=== PATIENT | male | born 1995 | race Caucasian/White ===

== ENCOUNTER 2016-08-13 23:25 | Emergency (ER) | payer OTHER ==
[2016-08-13] MEDS ORDERED: Lactated Ringers 1,000 ML IV ONE ×2 (23:38→23:45)
[2016-08-13 23:53] LABS: BASOPHIL % 0.2 % (0.0-0.4); Eosinophil % 2.3 % (0.00-5.0); Granulocytes % 43.9 % (36.0-66.0); Lymphocytes % 42.6 % (24.0-44.0); Mean Corpuscular Hemoglobin 30.7 pg (26-32); Mean Platelet Volume 10.8 fl (6-9.5); Platelet Count 298 K/mm3 (150-450); Red Blood Count 5.02 M/mm3 (4.1-5.6); Red Cell Distribution Width 13.8 % (11.5-14.0)
[2016-08-13 23:55] LABS: ADD URINE CULTURE? NO (NO); COMPLETE URINE MICROSCOPIC? NO; Collection Type CLEAN CATCH
[2016-08-14 00:13] LABS: ALBUMIN 3.9 g/dL (3.4-5.0); ALKALINE PHOSPHATASE 47 U/L (46-116); ANION GAP 8.7 MEQ/L (5-15); BLOOD UREA NITROGEN 15 mg/dL (9-20); CHLORIDE 105 mEq/L (98-107); Carbon Dioxide 30.8 mEq/L (21-32); Glucose 77 MG/DL (70-110); Potassium 3.9 mEq/L (3.5-5.1); SGOT/AST 16 U/L (15-37); SGPT/ALT 17 U/L (12-78); SODIUM 141 mEq/L (136-145); Total Protein 7.7 gm/dL (6.4-8.2)
--- NOTE | 2016-08-14 00:18 | ERPHSYRPT ---
- History of Present Illness Time Seen by Provider: 08/13/16 23:33 Source: patient, family (girlfriend) Patient Subjective Stated Complaint: states that he has had some light- headedness and dizziness to accompany abd pain that began today Triage Nursing Assessment: ambulatory to treatment area - steady gait - moves all extremities with equal strength. alert/oriented - happy/cooperative. skin pwd - no rash/injury. resps easy - non-labored Physician History: CC: passed out Hx: 21 y/o healthy male patient who lives in [place] in [address] with girlfriend. 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 He felt nausea and passed out briefly. It was hot. Drank fluids and went back to work. He has prior hx of syncope/fainting remotely. He went home. He then had abd pain and passed out again. No injury. He has had some left flank pain for a while off and on. He vomited before this episode. Witnessed by girlfriend. No seizure activity. Denies alcohol or drug use. No fever or chills. [place] hot working in the weather today. Witnessed: by family Prior Episodes: multiple episodes today (X2) Timing/Duration: today Hx Tetanus, Diphtheria Vaccination/Date Given: Yes Hx Influenza Vaccination/Date Given: No Hx Pneumococcal Vaccination/Date Given: No Immunizations Up to Date: Yes - Past Medical History Pertinent Past Medical History: No - Past Surgical History Past Surgical History: No - Social History Smoking Status: Current every day smoker Exposure to second hand smoke: No Drug Use: none Patient Lives Alone: No - Review of Systems Constitutional: No Fever, No Chills, No Malaise, No Weakness Eyes: No Symptoms Ears, Nose, & Throat: No Symptoms Respiratory: No Cough, No Dyspnea Cardiac: Syncope, No Chest Pain, No Palpitations Abdominal/Gastrointestinal: Abdominal Pain (intermittent with left flank pain), Vomiting, No Diarrhea Genitourinary Symptoms: Flank Pain, No Dysuria, No Hematuria, No Testicle Pain Musculoskeletal: No Symptoms Skin: No Rash Neurological: No Focal Weakness, No Headache, No Parasthesia All Other Systems: Reviewed and Negative Physical Exam - Nursing Vital Signs Nursing Vital Signs: Initial Vital Signs Temperature 98.9 F Temperature Source Oral Pulse Rate 62 Respiratory Rate 20 Blood Pressure [] 130/70 Pain Intensity 5 - Aiken Coma Scale Best Eye Response (Diego): (4) open spontaneously Best Verbal Response (Diego): (5) oriented Best Motor Response (Diego): (6) obeys commands Aiken Total: 15 - Physical Exam General Appearance: alert, thin (tall, ambulatory) Eye Exam: bilateral eye: PERRL, EOMI Ears, Nose, Throat Exam: normal ENT inspection, moist mucous membranes Neck Exam: normal inspection, non-tender, supple Respiratory: normal breath sounds, lungs clear Cardiovascular: regular rate/rhythm, No murmur, No pulse deficit Gastrointestinal: soft, No tenderness, No distention, No mass, No guarding Male Genitalia: normal genitalia, No hernia, No testicular tenderness Back Exam: normal inspection, CVA tenderness (mild left) Extremity Exam: normal inspection, normal range of motion Mental Status: alert, oriented x 3, cooperative Motor/Sensory: no motor deficit, no sensory deficit Skin Exam: warm, dry, No rash SpO2 Interpretation: normal SpO2: 96 Oxygen Delivery: Room Air - Course Nursing assessment & vital signs reviewed: Yes EKG Interpreted by Me: RATE (55), Sinus Aidan, NORMAL AXIS, NORMAL INTERVALS ( QTc 383), NORMAL QRS, NORMAL ST-T - Radiology Exams cxr X-ray Interpretation: Interpreted by me, Negative, Nml Mediastinum - CT Exams abd/pelvis CT Interpretation: Negative, Tele-radiologist Report Ordered Tests: Active Orders 24 hr Category Date Time Status Clean Catch Urine Specimen STAT Care 08/13/16 23:37 Active EKG-ER Only STAT Care 08/13/16 23:37 Active IV Insertion STAT Care 08/13/16 23:37 Active Orthostatic Vital Signs STAT Care 08/14/16 01:01 Active ABDOMEN AND PELVIS W/0 CONTRAS [CT] Stat Exams 08/13/16 23:38 Taken CHEST 2 VIEWS (PA AND LAT) Stat Exams 08/13/16 23:38 Taken CBC W DIFF Stat Lab 08/13/16 23:45 Completed CMP Stat Lab 08/13/16 23:45 Completed UA W/RFX UR CULTURE Stat Lab 08/13/16 23:30 Completed Urine Triage Profile Stat Lab 08/13/16 23:30 Completed Medication Summary Discontinued Medications Generic Name Dose Route Start Last Admin Trade Name Freq PRN Reason Stop Dose Admin Lactated Ringer's 1,000 mls @ 999 mls/hr 08/13/16 23:38 08/13/16 23:45 Lactated Ringers IV 08/14/16 00:38 999 mls/hr .Q1H1M ONE Administration Lactated Ringer's Confirm 08/13/16 23:45 Lactated Ringers Administered 08/13/16 23:46 Dose 1,000 mls @ ud IV .STK-MED ONE Lab/Rad Data: Laboratory Result Diagrams 08/13/16 23:45 08/13/16 23:45 Laboratory Results 08/13/16 08/13/16 08/13/16 Range/Units 23:45 23:45 23:30 WBC 10.0 (4.0-10.5) K/mm3 RBC 5.02 (4.1-5.6) M/mm3 Hgb 15.4 (12.5-18.0) gm/dl Hct 45.7 (42-50) % MCV 91.0 (78-100) fl MCH 30.7 (26-32) pg MCHC 33.7 (32-36) g/dl RDW 13.8 (11.5-14.0) % Plt Count 298 (150-450) K/mm3 MPV 10.8 H (6-9.5) fl Gran % 43.9 (36.0-66.0) % Lymphocytes % 42.6 (24.0-44.0) % Monocytes % 11.0 (0.0-12.0) % Eosinophils % 2.3 (0.00-5.0) % Basophils % 0.2 (0.0-0.4) % Basophils # 0.02 (0-0.4) Sodium 141 (136-145) mEq/L Potassium 3.9 (3.5-5.1) mEq/L Chloride 105 (98-107) mEq/L Carbon Dioxide 30.8 (21-32) mEq/L Anion Gap 8.7 (5-15) MEQ/L BUN 15 (9-20) mg/dL Creatinine 0.92 (0.55-1.30) mg/dl Estimated GFR > 60 ML/MIN Glucose 77 (70-110) MG/DL Calcium 9.4 (8.5-10.1) mg/dL Total Bilirubin 0.30 (0.2-1.0) mg/dL AST 16 (15-37) U/L ALT 17 (12-78) U/L Alkaline Phosphatase 47 (46-116) U/L Serum Total Protein 7.7 (6.4-8.2) gm/dL Albumin 3.9 (3.4-5.0) g/dL Ur Collection Type Urine Color (YELLOW) Urine Appearance (CLEAR) Urine pH (5-6) Ur Specific [place] (1.005-1.025) Urine Protein (Negative) Urine Glucose (UA) (NEGATIVE) mg/dL Urine Ketones (NEGATIVE) Urine Nitrite (NEGATIVE) Urine Bilirubin (NEGATIVE) Urine Urobilinogen (0-1) mg/dL Urine WBC (Auto) (NEGATIVE) Urine RBC (Auto) (0-5) Deepak/ul Urine Opiates Level NEG. (NEGATIVE) Ur Methadone NEG. (NEGATIVE) Urine Barbiturates NEG. (NEGATIVE) Ur Phencyclidine (PCP) NEG. (NEGATIVE) Urine Amphetamine NEG. (NEGATIVE) U Benzodiazepine Level NEG. (NEGATIVE) Urine Cocaine NEG. (NEGATIVE) Urine Marijuana (THC) NEG. (NEGATIVE) Specimen Received 08/13/16 Range/Units 23:30 WBC (4.0-10.5) K/mm3 RBC (4.1-5.6) M/mm3 Hgb (12.5-18.0) gm/dl Hct (42-50) % MCV (78-100) fl MCH (26-32) pg MCHC (32-36) g/dl RDW (11.5-14.0) % Plt Count (150-450) K/mm3 MPV (6-9.5) fl Gran % (36.0-66.0) % Lymphocytes % (24.0-44.0) % Monocytes % (0.0-12.0) % Eosinophils % (0.00-5.0) % Basophils % (0.0-0.4) % Basophils # (0-0.4) Sodium (136-145) mEq/L Potassium (3.5-5.1) mEq/L Chloride (98-107) mEq/L Carbon Dioxide (21-32) mEq/L Anion Gap (5-15) MEQ/L BUN (9-20) mg/dL Creatinine (0.55-1.30) mg/dl Estimated GFR ML/MIN Glucose (70-110) MG/DL Calcium (8.5-10.1) mg/dL Total Bilirubin (0.2-1.0) mg/dL AST (15-37) U/L ALT (12-78) U/L Alkaline Phosphatase (46-116) U/L Serum Total Protein (6.4-8.2) gm/dL Albumin (3.4-5.0) g/dL Ur Collection Type CLEAN CATCH Urine Color YELLOW (YELLOW) Urine Appearance CLEAR (CLEAR) Urine pH 7.0 (5-6) Ur Specific [place] 1.025 (1.005-1.025) Urine Protein NEGATIVE (Negative) Urine Glucose (UA) NEGATIVE (NEGATIVE) mg/dL Urine Ketones NEGATIVE (NEGATIVE) Urine Nitrite NEGATIVE (NEGATIVE) Urine Bilirubin NEGATIVE (NEGATIVE) Urine Urobilinogen 1 (0-1) mg/dL Urine WBC (Auto) NEGATIVE (NEGATIVE) Urine RBC (Auto) NEGATIVE (0-5) Deepak/ul Urine Opiates Level (NEGATIVE) Ur Methadone (NEGATIVE) Urine Barbiturates (NEGATIVE) Ur Phencyclidine (PCP) (NEGATIVE) Urine Amphetamine (NEGATIVE) U Benzodiazepine Level (NEGATIVE) Urine Cocaine (NEGATIVE) Urine Marijuana (THC) (NEGATIVE) Specimen Received 08/13/16 2340 - Progress Progress Note: 08/14/16 00:18 18 ga PIV left AC X 1 stick. IVF LR bolus given. Will check CT to rule out kidney stone. 08/14/16 01:06 Feels better after IVF. LAbs wnl. Advised follow up with family doctor before strenuous exercise. Work slip given. Will release with instr. Counseled pt/family regarding: lab results, diagnosis, need for follow-up, rad results - Departure Time of Disposition: 01:07 Departure Disposition: Home Clinical Impression: Syncope Qualifiers: Syncope type: unspecified Qualified Code(s): R55 - Syncope and collapse Condition: Stable Critical Care Time: No Referrals: DOCTOR,NO FAMILY [Primary Care Provider] - Instructions: Fainting, Dehydration -- Adult, Heat Exhaustion and Heat Stroke Additional Instructions: Drink plenty of fluids. Stay with familky and no driving tonite. Follow up with family doctor before strenuous exercise. Return for problems or concerns. Work slip for tomorrow.
[2016-08-14 01:10] VITALS: BP 133/85; PULSE 76; O2SAT 100
--- NOTE | 2016-08-14 09:04 | XRAY ---
Indication: Left flank pain. Multiple contiguous axial images obtained through the abdomen and pelvis without contrast as ordered. Comparison: None. Lung bases are clear. Heart is not enlarged. Noncontrasted stomach and bowel loops appear nonobstructed. Mild scattered fecal debris in the right hemicolon. Normal appendix. No free fluid/air. Remaining liver, gallbladder, pancreas, spleen, adrenal glands, kidneys, ureters, bladder, and aorta appear unremarkable for noncontrast exam. Osseous structures intact. Impression: Negative CT abdomen/pelvis without contrast exam. Comment: Preliminary interpretation was made by [facility]. No discrepancy. CT DI 11.57
--- NOTE | 2016-08-14 09:06 | XRAY ---
Indication: Syncope. Comparison: None PA/lateral chest demonstrates normal heart and lungs. Bony thorax intact with minimal T8-T10 compression deformities with less than 25% height loss.
== END 2016-08-14 01:17 | disposition home or self-care (01) ==
LOC: ED 23:25
DX: R55 Syncope and collapse (principal); R42 Dizziness and giddiness; R10.9 Unspecified abdominal pain
CPT/HCPCS: 36000; 36415; 71020; 74176; 80053; 80307; 81002; 85025; 93005; 96360; 99284

== ENCOUNTER 2016-10-24 17:28 | Emergency (ER) | payer OTHER ==
[2016-10-24 17:43] VITALS: O2SAT 98
[2016-10-24] MEDS ORDERED: Adacel Vial IM ONE ×2 (18:03→18:07)
[2016-10-24] MEDS ORDERED: MOTRIN 600 MG PO ONE (18:04)
[2016-10-24] MEDS ORDERED: MOTRIN 600 MG ONE (18:07)
--- NOTE | 2016-10-24 18:09 | ERPHSYRPT ---
- History of Present Illness Time Seen by Provider: 10/24/16 18:04 Source: patient Exam Limitations: no limitations Patient Subjective Stated Complaint: Pt states "About 4 pm I was working on a tire and I got my little finger on my right hand pinched and now it is numb and hurts. I work at [employer]." Triage Nursing Assessment: PT alert and oriented X3, skin pwd pt ambulates without difficulty, pt has small evulsion noted to pinky of right hand, CSM X 4 Physician History: 21 y/o male comes to the ER after working on a tire and got his right hand stuck in a tool to fix the car. Pt says he was bleeding profusely and admits to pain as a 7/10. Pt does not remember the last time she had a tetanus shot. Occurred: just prior to arrival Method of Injury: direct blow Quality: constant Severity of Pain-Max: moderate Severity of Pain-Current: moderate Extremities Pain Location: 5th finger: right Modifying Factors: Improves With: nothing Associated Symptoms: none Allergies/Adverse Reactions: No Known Drug Allergies Allergy (Verified 10/24/16 17:43) Hx Tetanus, Diphtheria Vaccination/Date Given: No Hx Influenza Vaccination/Date Given: No Hx Pneumococcal Vaccination/Date Given: No Immunizations Up to Date: Yes - Review of Systems Constitutional: No Fever, No Chills Eyes: No Symptoms Ears, Nose, & Throat: No Symptoms Respiratory: No Cough, No Dyspnea Cardiac: No Chest Pain, No Edema, No Syncope Abdominal/Gastrointestinal: No Abdominal Pain, No Nausea, No Vomiting, No Diarrhea Genitourinary Symptoms: No Dysuria Musculoskeletal: No Back Pain, No Neck Pain Skin: Skin Lesions, No Rash Neurological: No Dizziness, No Focal Weakness, No Sensory Changes Psychological: No Symptoms Endocrine: No Symptoms All Other Systems: Reviewed and Negative - Past Medical History Pertinent Past Medical History: No - Past Surgical History Past Surgical History: No - Social History Smoking Status: Current every day smoker How long have you smoked: years Exposure to second hand smoke: Yes Drug Use: none Patient Lives Alone: No - Nursing Vital Signs Nursing Vital Signs: Initial Vital Signs Temperature 98.4 F 10/24/16 17:35 Pulse Rate 78 10/24/16 17:35 Respiratory Rate 16 10/24/16 17:35 Blood Pressure 126/67 10/24/16 17:35 O2 Sat by Pulse Oximetry 98 10/24/16 17:35 Pain Scale Pain Intensity 7 - Physical Exam General Appearance: alert Eyes, Ears, Nose, Throat Exam: moist mucous membranes Neck Exam: non-tender, supple Cardiovascular/Respiratory Exam: chest non-tender, normal breath sounds, regular rate/rhythm, no respiratory distress Abdominal Exam: non-tender, No guarding Back Exam: normal inspection, No vertebral tenderness Hand Exam: laceration Neuro/Tendon Exam: normal sensation, normal motor functions Mental Status Exam: alert, oriented x 3, cooperative Skin Exam: normal color, warm, dry SpO2 Interpretation: normal SpO2: 98 Oxygen Delivery: Room Air - Course Nursing assessment & vital signs reviewed: Yes Ordered Tests: Medication Summary Discontinued Medications Generic Name Dose Route Start Last Admin Trade Name Freq PRN Reason Stop Dose Admin Diphtheria/Tetanus/Acell Pertussis 0.5 ml 10/24/16 18:03 Adacel Vial IM 10/24/16 18:04 .ONCE ONE Diphtheria/Tetanus/Acell Pertussis Confirm 10/24/16 18:07 Adacel Vial Administered 10/24/16 18:08 Dose 0.5 ml IM .STK-MED ONE Ibuprofen 600 mg 10/24/16 18:04 Motrin 600 Mg PO 10/24/16 18:05 STAT ONE Ibuprofen Confirm 10/24/16 18:07 Motrin 600 Mg Administered 10/24/16 18:08 Dose 600 mg .ROUTE .STK-MED ONE - Progress Progress: improved Progress Note: 10/24/16 18:07 The laceration is very small with a piece of skin hanging off. The skin was cut with scissors after cleaning it with betadine. I applied steri strips and bandaged it up after applying bacitracin. Pt will receive a dose of boostrix prior to being discharged home - Departure Time of Disposition: 18:09 Departure Disposition: Home Clinical Impression: Finger laceration Qualifiers: Encounter type: initial encounter Finger: little finger Damage to nail status: without damage Foreign body presence: without foreign body Laterality: right Qualified Code(s): S61.216A - Laceration without foreign body of right little finger without damage to nail, initial encounter Condition: Stable Critical Care Time: No Referrals: HENRY SMITH [Primary Care Provider] - Instructions: Laceration Repair -- Finger Forms: Work/School Release Form Prescriptions: Ketorolac Tromethamine [Toradol] 10 mg PO QID PRN #20 tablet PRN Reason: Pain
[2016-10-24 18:25] VITALS: BP 122/64; PULSE 74
== END 2016-10-24 18:25 | disposition home or self-care (01) ==
LOC: ED 17:28
DX: S61.216A Laceration without foreign body of right little finger without damage to nail, initial encounter (principal); W23.0XXA Caught, crushed, jammed, or pinched between moving objects, initial encounter; Y92.69 Other specified industrial and construction area as the place of occurrence of the external cause; Y99.0 Civilian activity done for income or pay
CPT/HCPCS: 80307; 90715; 96372; 99283; A9270-GY

== ENCOUNTER 2016-11-23 09:45 | Emergency (ER) | payer OTHER ==
[2016-11-23] MEDS ORDERED: Sodium Chloride 0.9% 1000 ML 1,000 ML IV STA (09:56)
[2016-11-23] MEDS ORDERED: BABY ASPIRIN 81 MG CHEW PO ONE (09:56)
[2016-11-23 09:58] VITALS: O2SAT 99
[2016-11-23] MEDS ORDERED: BABY ASPIRIN 81 MG CHEW ONE (10:02)
[2016-11-23] MEDS ORDERED: Sodium Chloride 0.9% 1000 ML 1,000 ML ONE (10:02)
--- NOTE | 2016-11-23 10:02 | ERPHSYRPT ---
- History of Present Illness Time Seen by Provider: 11/23/16 09:56 Historian: patient Exam Limitations: no limitations Patient Subjective Stated Complaint: PT states "I started to have chest pain last night at 10 pm and it is just getting worse. I have also been coughing up mucus" Triage Nursing Assessment: Pt alert and oriented X 3, skin pwd. Pt ambulates without difficulty, able to speak, in full sentences. clear speech. Physician History: 21-year-old white male with no previous medical history arrives with complaint of epigastric substernal chest pain radiating to lateral lower chest bilaterally symptoms since 10:00 last night this began while he was fixing the dryer he states it feels as a pressure states is mostly constant but however has episodes where it's seems to be 5-10 minutes at a time he is short of breath with this positive nausea. Patient states the pain began while he was fixing his dryer Past medical history patient denies past surgical history includes hernia surgery and he had had a broken leg set the past.. Social history includes tobacco use Timing/Duration: yesterday (10 PM last night) Activities at Onset: other (fixing his dryer) Quality: other (feels like something is sitting on ) Location: substernal, central, epigastric Chest Pain Radiation: no radiation Severity of Pain-Max: moderate Severity of Pain-Current: moderate Modifying Factors: Improves With: nothing Associated Symptoms: nausea, hurts to breathe, No vomiting, No palpitations, No heartburn, No abdominal pain, No cough, No diaphoresis, No chills, No fever, No fatigue, No weakness, No swelling/lump in chest, No syncope, No rash, No headache, No dizziness, No edema, No back pain Nitro Today/Relief: no nitro taken today Aspirin Treatment Today: 81 mg x 4, provided by ED Allergies/Adverse Reactions: No Known Drug Allergies Allergy (Verified 10/24/16 17:43) Home Medications: No Reportable Medications [No Reported Medications] 11/23/16 [History] Hx Tetanus, Diphtheria Vaccination/Date Given: Yes Hx Influenza Vaccination/Date Given: No Hx Pneumococcal Vaccination/Date Given: No Immunizations Up to Date: Yes - Review of Systems Constitutional: No Symptoms Eyes: No Symptoms Ears, Nose, & Throat: No Symptoms Respiratory: Cyanosis, Dyspnea (R away her), No Cough, No Dyspnea on Exertion ( BANSAL), No Stridor, No Wheezing Cardiac: Chest Pain, No Edema, No Palpitations, No Syncope, No Orthopnea Abdominal/Gastrointestinal: Abdominal Pain (epigastric pain), Nausea, No Vomiting, No Diarrhea, No Constipation, No Hematemesis, No Hematochezia, No Melena, No Dysphagia, No Appetite Changes Genitourinary Symptoms: No Dysuria Musculoskeletal: No Back Pain, No Neck Pain Skin: No Rash Neurological: No Dizziness, No Focal Weakness, No Sensory Changes Psychological: No Symptoms Endocrine: No Symptoms All Other Systems: Reviewed and Negative - Past Medical History Pertinent Past Medical History: No Neurological History: No Pertinent History - Past Surgical History Past Surgical History: Yes Other Surgical History: hernia, leg - Social History Smoking Status: Current every day smoker How long have you smoked: years Exposure to second hand smoke: Yes Drug Use: none Patient Lives Alone: No - Nursing Vital Signs Nursing Vital Signs: Initial Vital Signs Temperature 98.4 F 11/23/16 09:46 Pulse Rate 78 11/23/16 09:46 Respiratory Rate 16 11/23/16 09:46 Blood Pressure 126/65 11/23/16 09:46 O2 Sat by Pulse Oximetry 99 11/23/16 09:46 Pain Scale Pain Intensity 6 - Physical Exam General Appearance: mild distress Eye Exam: PERRL/EOMI, eyes nml inspection Ears, Nose, Throat Exam: normal ENT inspection, moist mucous membranes Neck Exam: normal inspection, non-tender, supple, full range of motion Respiratory Exam: normal breath sounds, lungs clear, other (pain with deep breathing epigastric region), No respiratory distress Cardiovascular Exam: regular rate/rhythm, normal heart sounds, normal peripheral pulses, capillary refill <2 sec Gastrointestinal/Abdomen Exam: soft, normal bowel sounds, tenderness ( epigastric tenderness with palpation), No distention, No mass, No guarding, No ecchymosis, No pulsatile mass, No rebound, No hernia, No hepatomegaly, No organomegaly, No splenomegaly Back Exam: normal inspection, No CVA tenderness, No vertebral tenderness Extremity Exam: normal inspection, normal range of motion Neurologic Exam: alert, oriented x 3, cooperative, normal mood/affect, sensation nml, No motor deficits Skin Exam: normal color, warm, dry SpO2 Interpretation: normal (99%) SpO2: 99 Oxygen Delivery: Room Air - Course Nursing assessment & vital signs reviewed: Yes EKG Interpreted by Me: RATE (EKG, sinus arrhythmia, 71 bpm, normal axis,no acute ST or T wave changes normal EKG), NORMAL AXIS - Radiology Exams Chest X-ray Interpretation: Interpreted by me, Negative, No Pneumonia, No Pneumothorax Ordered Tests: Active Orders 24 hr Category Date Time Status Link Knitting Machine Operator STAT Care 11/23/16 09:56 Active EKG-ER Only STAT Care 11/23/16 09:56 Active IV Insertion STAT Care 11/23/16 09:56 Active Pulse Oximetry (ED) STAT Care 11/23/16 09:56 Active CHEST 1 VIEW (PORTABLE) Stat Exams 11/23/16 09:56 Taken AMYLASE Stat Lab 11/23/16 09:56 Completed CBC W DIFF Stat Lab 11/23/16 09:56 Completed CMP Stat Lab 11/23/16 09:56 Completed D-DIMER QUANTITATION Stat Lab 11/23/16 09:56 Completed LIPASE Stat Lab 11/23/16 09:56 Completed TROPONIN Q3H Lab 11/23/16 10:00 Completed TROPONIN Q3H Lab 11/23/16 13:00 Ordered TROPONIN Q3H Lab 11/23/16 16:00 Ordered TROPONIN Q3H Lab 11/23/16 19:00 Ordered TROPONIN Q3H Lab 11/23/16 22:00 Ordered Medication Summary Discontinued Medications Generic Name Dose Route Start Last Admin Trade Name Freq PRN Reason Stop Dose Admin Aspirin 324 mg 11/23/16 09:56 11/23/16 10:05 Baby Aspirin 81 Mg Chew PO 11/23/16 09:57 324 mg STAT ONE Administration Aspirin Confirm 11/23/16 10:02 Baby Aspirin 81 Mg Chew Administered 11/23/16 10:03 Dose 324 mg .ROUTE .STK-MED ONE Sodium Chloride 1,000 mls @ 999 mls/hr 11/23/16 09:56 11/23/16 10:05 Sodium Chloride 0.9% 1000 Ml IV 11/23/16 10:56 999 mls/hr .Q1H1M STA Administration Sodium Chloride Confirm 11/23/16 10:02 Sodium Chloride 0.9% 1000 Ml Administered 11/23/16 10:03 Dose 1,000 mls @ ud .ROUTE .STK-MED ONE Lab/Rad Data: Laboratory Result Diagrams 11/23/16 09:56 11/23/16 09:56 Laboratory Results 11/23/16 11/23/16 11/23/16 Range/Units 10:00 09:56 09:56 WBC (4.0-10.5) K/mm3 RBC (4.1-5.6) M/mm3 Hgb (12.5-18.0) gm/dl Hct (42-50) % MCV (78-100) fl MCH (26-32) pg MCHC (32-36) g/dl RDW (11.5-14.0) % Plt Count (150-450) K/mm3 MPV (6-9.5) fl Gran % (36.0-66.0) % Lymphocytes % (24.0-44.0) % Monocytes % (0.0-12.0) % Eosinophils % (0.00-5.0) % Basophils % (0.0-0.4) % Basophils # (0-0.4) D-Dimer < 182 (0-500) ng/mL Sodium 145 (136-145) mEq/L Potassium 3.8 (3.5-5.1) mEq/L Chloride 108 H (98-107) mEq/L Carbon Dioxide 26.4 (21-32) mEq/L Anion Gap 14.1 (5-15) MEQ/L BUN 12 (9-20) mg/dL Creatinine 0.88 (0.55-1.30) mg/dl Estimated GFR > 60 ML/MIN Glucose 94 (70-110) MG/DL Calcium 9.1 (8.5-10.1) mg/dL Total Bilirubin 0.30 (0.2-1.0) mg/dL AST 20 (15-37) U/L ALT 25 (12-78) U/L Alkaline Phosphatase 48 (46-116) U/L Troponin I < 0.017 (0.000-0.056) ng/ml Serum Total Protein 7.1 (6.4-8.2) gm/dL Albumin 3.9 (3.4-5.0) g/dL Amylase 65 (25-115) U/L Lipase 114 (73-393) U/L 11/23/16 Range/Units 09:56 WBC 9.2 (4.0-10.5) K/mm3 RBC 4.94 (4.1-5.6) M/mm3 Hgb 15.2 (12.5-18.0) gm/dl Hct 44.1 (42-50) % MCV 89.3 (78-100) fl MCH 30.8 (26-32) pg MCHC 34.5 (32-36) g/dl RDW 13.4 (11.5-14.0) % Plt Count 270 (150-450) K/mm3 MPV 10.8 H (6-9.5) fl Gran % 51.4 (36.0-66.0) % Lymphocytes % 34.1 (24.0-44.0) % Monocytes % 10.1 (0.0-12.0) % Eosinophils % 4.1 (0.00-5.0) % Basophils % 0.3 (0.0-0.4) % Basophils # 0.03 (0-0.4) D-Dimer (0-500) ng/mL Sodium (136-145) mEq/L Potassium (3.5-5.1) mEq/L Chloride (98-107) mEq/L Carbon Dioxide (21-32) mEq/L Anion Gap (5-15) MEQ/L BUN (9-20) mg/dL Creatinine (0.55-1.30) mg/dl Estimated GFR ML/MIN Glucose (70-110) MG/DL Calcium (8.5-10.1) mg/dL Total Bilirubin (0.2-1.0) mg/dL AST (15-37) U/L ALT (12-78) U/L Alkaline Phosphatase (46-116) U/L Troponin I (0.000-0.056) ng/ml Serum Total Protein (6.4-8.2) gm/dL Albumin (3.4-5.0) g/dL Amylase (25-115) U/L Lipase (73-393) U/L - Progress Progress: improved Air Movement: fair Progress Note: 11/23/16 11:39 21-year-old white male with complaint of chest pain since 10:00 last night. Patient improved after IV fluids aspirin. EKG is negative chemistry negative chest x-rays negative labs are all negative. Patient does not want repeat troponin it has been over 10 hours since the onset of his pain and he is feeling better with the fluids. - Departure Time of Disposition: 11:40 Departure Disposition: Home Clinical Impression: Mild dehydration Chest pain Qualifiers: Chest pain type: unspecified Qualified Code(s): R07.9 - Chest pain, unspecified Condition: Fair Critical Care Time: No Referrals: HENRY GUILLERMO [Primary Care Provider] - Additional Instructions: Return home. Rest. Plenty of fluids. Tylenol every 4 hours or Motrin every 6 hours as needed for pain. Follow-up with Dr. Guillermo call his office for an appointment. Return for acute distress or for severe symptoms.
[2016-11-23 10:12] LABS: BASOPHIL % 0.3 % (0.0-0.4); Eosinophil % 4.1 % (0.00-5.0); Granulocytes % 51.4 % (36.0-66.0); Lymphocytes % 34.1 % (24.0-44.0); Mean Cell Volume 89.3 fl (78-100); Mean Corpuscular Hemoglobin 30.8 pg (26-32); Mean Platelet Volume 10.8 fl (6-9.5); Monocytes % 10.1 % (0.0-12.0); Platelet Count 270 K/mm3 (150-450); Red Blood Count 4.94 M/mm3 (4.1-5.6); Red Cell Distribution Width 13.4 % (11.5-14.0); White Blood Count 9.2 K/mm3 (4.0-10.5)
[2016-11-23 10:38] LABS: ALBUMIN 3.9 g/dL (3.4-5.0); ALKALINE PHOSPHATASE 48 U/L (46-116); ANION GAP 14.1 MEQ/L (5-15); BLOOD UREA NITROGEN 12 mg/dL (9-20); CHLORIDE 108 mEq/L (98-107); Carbon Dioxide 26.4 mEq/L (21-32); Glucose 94 MG/DL (70-110); LIPASE 114 U/L (73-393); Potassium 3.8 mEq/L (3.5-5.1); SGOT/AST 20 U/L (15-37); SODIUM 145 mEq/L (136-145); Total Protein 7.1 gm/dL (6.4-8.2)
[2016-11-23 10:53] LABS: SGPT/ALT 25 U/L (12-78)
[2016-11-23 11:35] VITALS: BP 113/75; PULSE 63
--- NOTE | 2016-11-23 21:12 | XRAY ---
Indication: Chest pain. Comparison: August 14, 2016. Portable chest again demonstrates normal heart and lungs. Bony thorax intact.
== END 2016-11-23 11:53 | disposition home or self-care (01) ==
LOC: ED 09:45
DX: E86.0 Dehydration (principal); R07.89 Other chest pain; R11.10 Vomiting, unspecified; R10.13 Epigastric pain
CPT/HCPCS: 36000; 36415; 71010; 80053; 82150; 83690; 84484; 85025; 85379; 93005; 93041; 96360; 99284; A9270-GY

== ENCOUNTER 2018-04-25 12:28 | Emergency (ER) | payer MEDICAID, OTHER ==
[2018-04-25] MEDS ORDERED: MOTRIN 600 MG PO ONE (12:42)
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
[2018-04-25] MEDS ORDERED: MOTRIN 600 MG ONE (12:58)
[2018-04-25 13:36] VITALS: BP 116/72; PULSE 78; O2SAT 97
--- NOTE | 2018-04-25 19:58 | XRAY ---
Indication: Pain following injury. Comparison: None 3 views of the right hand obtained. No bony, articular, or soft tissue abnormalities.
== END 2018-04-25 13:40 | disposition home or self-care (01) ==
LOC: ED 12:28
DX: S60.221A Contusion of right hand, initial encounter (principal); W51.XXXA Accidental striking against or bumped into by another person, initial encounter; M25.531 Pain in right wrist
CPT/HCPCS: 73130; 99284; A9270-GY

== ENCOUNTER 2018-05-04 19:22 | Emergency (ER) | payer MEDICAID ==
[2018-05-04 19:30] VITALS: O2SAT 97
[2018-05-04] MEDS ORDERED: TORAdol 30 mg Injection IM ONE (19:53)
[2018-05-04] MEDS ORDERED: TORAdol 30 mg Injection ONE (19:55)
--- NOTE | 2018-05-04 20:00 | ERPHSYRPT ---
- History of Present Illness Time Seen by Provider: 05/04/18 19:48 Source: patient Exam Limitations: no limitations Patient Subjective Stated Complaint: Left arm injury Triage Nursing Assessment: Patient ambulated back to ED and transferred self to bed. Patient A+O X 3. Skin pink, warm and dry. Patient complains of left arm pain 10/10. Patient states he was shoveling horse manuerer out of a stall when the pain in the middle of left arm started. Left arm noted to have raised area in medial arm. No redness or visible injuries noted. Physician History: 22-year-old white male arrives with complaint of pain in his left distal forearm ulnar aspect symptoms since Friday 2 days ago. Patient states the pain is worse with movement of his left hand and wrist he states he is tender in the area. He states it began while shoveling Horse manure. Past medical history patient denies. Past surgical history inguinal hernia Social history tobacco and occasional alcohol Occurred: days ago (2 days ago) Method of Injury: other (shoveling Horse manure) Quality: constant, aching Severity of Pain-Max: moderate Severity of Pain-Current: moderate Extremities Pain Location: forearm: left Modifying Factors: Improves With: other (worse with movement of patient's left hand and wrist) Associated Symptoms: none Allergies/Adverse Reactions: No Known Drug Allergies Allergy (Verified 05/04/18 19:32) Hx Tetanus, Diphtheria Vaccination/Date Given: Yes Hx Influenza Vaccination/Date Given: No Hx Pneumococcal Vaccination/Date Given: No Immunizations Up to Date: Yes - Review of Systems Constitutional: No Fever, No Chills Eyes: No Symptoms Ears, Nose, & Throat: No Symptoms Respiratory: No Cough, No Dyspnea Cardiac: No Chest Pain, No Edema, No Syncope Abdominal/Gastrointestinal: No Symptoms Genitourinary Symptoms: No Dysuria Musculoskeletal: Other (Pain left distal forearm) Skin: No Rash Neurological: No Dizziness, No Focal Weakness, No Sensory Changes Psychological: No Symptoms Endocrine: No Symptoms All Other Systems: Reviewed and Negative - Past Medical History Pertinent Past Medical History: No Neurological History: No Pertinent History ENT History: No Pertinent History Cardiac History: No Pertinent History Respiratory History: No Pertinent History Endocrine Medical History: No Pertinent History Musculoskeletal History: No Pertinent History GI Medical History: No Pertinent History History: No Pertinent History Psycho-Social History: No Pertinent History Male Reproductive Disorders: No Pertinent History - Past Surgical History Past Surgical History: Yes Neuro Surgical History: No Pertinent History Cardiac: No Pertinent History Respiratory: No Pertinent History Gastrointestinal: Hernia Repair Genitourinary: No Pertinent History Musculoskeletal: No Pertinent History Male Surgical History: No Pertinent History Other Surgical History: inguinal hernia - Social History Smoking Status: Current every day smoker How long have you smoked: 10 years Exposure to second hand smoke: Yes Alcohol Use: Socially Drug Use: marijuana Patient Lives Alone: No Significant Family History: no pertinent family hx - Nursing Vital Signs Nursing Vital Signs: Initial Vital Signs Temperature 98.1 F 05/04/18 19:29 Pulse Rate 68 05/04/18 19:29 Respiratory Rate 18 05/04/18 19:29 Blood Pressure 122/49 05/04/18 19:29 O2 Sat by Pulse Oximetry 97 05/04/18 19:29 Pain Scale Pain Intensity 4 - Physical Exam General Appearance: mild distress Eyes, Ears, Nose, Throat Exam: moist mucous membranes Neck Exam: non-tender, supple Cardiovascular/Respiratory Exam: chest non-tender, normal breath sounds, regular rate/rhythm, no respiratory distress Abdominal Exam: non-tender, No guarding Back Exam: normal inspection, normal range of motion, No CVA tenderness, No vertebral tenderness Shoulder Exam: normal inspection, non-tender, no evidence of injury, normal ROM Elbow/Forearm Exam: No normal inspection (left forearm mild edema distal forearm ulnar aspect. Area tender to palpation, pain to area with movement of left wrist left radial ulnar pulses intact 2/4 sensation intact all fingers good capillary refill to all fingers, full range of motion all fingers) Wrist Exam: normal inspection Hand Exam: normal inspection, non-tender, no evidence of injury, normal ROM Neuro/Tendon Exam: normal sensation, normal motor functions Mental Status Exam: alert, oriented x 3, cooperative Skin Exam: normal color, warm, dry SpO2 Interpretation: normal (97%) SpO2: 97 - Course Nursing assessment & vital signs reviewed: Yes - Radiology Exams Left Forearm X-ray Interpretation: Interpreted by me (x-ray left forearm: no fractures, no subluxation) Ordered Tests: Active Orders 24 hr Category Date Time Status FOREARM Stat Exams 05/04/18 19:53 Taken Medication Summary Discontinued Medications Generic Name Dose Route Start Last Admin Trade Name Freq PRN Reason Stop Dose Admin Ketorolac Tromethamine 60 mg 05/04/18 19:53 05/04/18 19:59 Toradol 30 Mg Injection IM 05/04/18 19:54 60 mg STAT ONE Administration Ketorolac Tromethamine Confirm 05/04/18 19:55 Toradol 30 Mg Injection Administered 05/04/18 19:56 Dose 60 mg .ROUTE .STK-MED ONE - Progress Progress: improved Progress Note: 05/04/18 20:17 22-year-old white male arrives with complaint of pain and swelling left forearm which began while shoveling Horse manure, Patient with x-ray of the left forearm negative fracture negative subluxation. Will go ahead and place left wristlet also place patient on Naprosyn. - Departure Time of Disposition: 20:18 Departure Disposition: Home Clinical Impression: Pain in left forearm, Tendinitis Condition: Fair Critical Care Time: No Referrals: DOCTOR,NO FAMILY [Primary Care Provider] - Additional Instructions: Return home. Naprosyn 500 mg orally twice a day with food as needed for pain #20. Cold packs to area 24-48 hours. Wear left wristlet 48-72 hours longer if pain persists. Follow-up with your family doctor if symptoms are worse, no better in 48 hours, or persist longer than one week. Return for acute distress or for severe symptoms. Your x-rays have been preliminarily read they will be reread tomorrow you'll be contacted if any discrepancies are noted. Prescriptions: Naproxen 500 mg [Naprosyn 500 MG] 500 mg PO BIDPRN PRN #20 tablet PRN Reason: Pain
[2018-05-04 20:24] VITALS: BP 123/88; PULSE 64
--- NOTE | 2018-05-05 08:39 | XRAY ---
Indication: Pain and edema. Comparison: None 2 views of the left forearm obtained. No bony, articular, or soft tissue abnormalities.
== END 2018-05-04 20:27 | disposition home or self-care (01) ==
LOC: ED 19:22
DX: M79.632 Pain in left forearm (principal); M77.9 Enthesopathy, unspecified; X50.3XXA Overexertion from repetitive movements, initial encounter
CPT/HCPCS: 73090; 96372; 99284; J1885; L3908